=== PATIENT | female | born 1975 | race Caucasian/White ===

== ENCOUNTER → 2019-04-17 14:20 | Outpatient (CLI) | payer OTHER, SELFPAY ==
--- NOTE | 2019-04-17 | EMB_PTH ---
PATIENT: KIMBERLY BALBUENA LOC: [facility] U#:[id number] AGE/SX: 50/F ROOM: RE04/17/[address]: Dr. Sridhar Woods MD : 1975 BED: DIS: SPEC #: [id number] RECD: 04/18/19 10:32 STATUS: ODIN KATEY #: [id number] VILMA: 04/17/19 00:[address]: Sridhar Woods DEPT: SURGICAL PATHOLOGY RECD BY: Kale Flores Tissues: Endometrium, NOS Procedures: Surgery Specimen Level IV HEADER OPERATION: Endometrial biopsy PRE-OP DIAGNOSIS: N93.9 TISSUE SUBMITTED: Endometrial biopsy MICROSCOPIC DIAGNOSIS Endometrial biopsy: Secretory endometrium. TAHIRA:nichole 04/19/19 MICROSCOPIC DESCRIPTION Slides are reviewed. GROSS DESCRIPTION Received in fixative is one container labeled with the patient's name and designated EM biopsy. The specimen consists of multiple irregular fragments of juarez-pink soft tissue that in aggregate measure 3 x 2.5 x 0.3 cm. The entire specimen is submitted in one cassette. / SJ:rg 04/18/19 TC:4 CPT: [id number]
[2019-04-19 16:43] LABS: HPV Reflexed? NOT INDICATED
== END ==
PROVIDERS: Referring Provider Obstetrics & Gynecology; Visit Provider Obstetrics & Gynecology
DX: N85.8 Other specified noninflammatory disorders of uterus (principal); N93.9 Abnormal uterine and vaginal bleeding, unspecified; Z12.4 Encounter for screening for malignant neoplasm of cervix
CPT/HCPCS: 87624; 88175; 88305; G0145